=== PATIENT | female | born 1990 | race Caucasian/White ===

== ENCOUNTER 2022-01-10 05:22 | Inpatient (IN) | payer OTHER ==
[~2022-01-10] VITALS: Ht 167.6 cm; Wt 72.1 kg
[~2022-01-10 05:22] MED LIST: IBUPROFEN600 MG PO; NORFLEX 100 MG100 MG PO; PRENATAL VITAM1 EAC8 PO
[2022-01-10] MEDS ORDERED: FAMOTIDINE20 MG PO (06:32)
[2022-01-10 06:56] LABS: HEMOGLOBIN 12.1 gm/dl (12.3-15.3); RED BLOOD COUNT 3.96 M/UL (4.00-5.10); WHITE BLOOD COUNT 7.7 K/UL (4.5-11.0)
[2022-01-10] MEDS ORDERED: IBUPROFEN600 MG PO (08:05)
[2022-01-10] MEDS ORDERED: COLACE 100MG C100 MG PO (08:05)
[2022-01-10] MEDS ORDERED: HYDROCODON-ACE1 EAC6 PO (08:05)
[2022-01-11 04:52] LABS: HEMOGLOBIN 10.5 gm/dl (12.3-15.3)
== END 2022-01-11 17:25 | disposition home or self-care (01) | DRG 788 ==
LOC: OB 05:22
PROVIDERS: ADMIT Obstetrics & Gynecology
PROC: 4A1HXCZ Monitoring of Products of Conception, Cardiac Rate, External Approach (ICD-10-PCS; 2022-01-10)
PROC: 3E0234Z Introduction of Serum, Toxoid and Vaccine into Muscle, Percutaneous Approach (ICD-10-PCS; 2022-01-10)
PROC: 10D00Z1 Extraction of Products of Conception, Low, Open Approach (ICD-10-PCS; principal; 2022-01-10 07:30)
DX: O34.211 Maternal care for low transverse scar from previous cesarean delivery (principal); Z3A.39 39 weeks gestation of pregnancy; Z37.0 Single live birth; Z20.822 Contact with and (suspected) exposure to COVID-19; O99.334 Smoking (tobacco) complicating childbirth; F17.210 Nicotine dependence, cigarettes, uncomplicated; Z23 Encounter for immunization
CPT/HCPCS: 81001; 82800; 85014; 85018; 85025; 90715; 96372; C9113; J0690; J1885; J2250; J2274; J2370; J2405; J2590; J3010; J7120